=== PATIENT | male | born 1950 | race Caucasian/White ===

== ENCOUNTER 2017-07-28 15:21 | Inpatient (IN) | payer MEDICARE ==
[~2017-07-28] VITALS: Ht 190.5 cm; Wt 67.0 kg
[2017-07-28] VITALS (8 sets, daily range): BP systolic 79–122; BP diastolic 50–70; PULSE 82–100; RESP 15–18; TEMP 97.7; O2SAT 98–100
[2017-07-28] MEDS ORDERED: SODIUM CHLOR 0.9% 1000 ML INJ 1,000 ML IV SCH (17:14)
[2017-07-28] MEDS ORDERED: SODIUM CHLORIDE 0.9% FLUSH 5 ML FLUSH IV FLUSH PRN (17:15)
--- NOTE | 2017-07-28 17:34 | PD ---
HPI Chief Complaint: Psychiatric Symptoms Time Seen by Provider: 17:21 Travel History International Travel<30 days: No Contact w/Intl Traveler<30days: No Traveled to known affect area: No History of Present Illness HPI 67 YO M with PMH of muscular dystrophy presents to the ED via EMS for evaluation of sacral decubitus. The patient states that some family came to visit from out of town, saw the wound and thought he should be seen in the ED. On presentation any denies fever, chills, nausea, vomiting. He endorses anhedonia and states that he feels "as if I should get my affairs in order." He denies suicidality. He has family members in town that help him with his daily needs. He states that he has not seen a physician in approximately 15 years. PFSH Past Medical History Immune Disorder: Yes Musculoskeletal: Yes (MUSCLAR DISTROPHY ) Past Surgical History Surgical History: No Previous Surgery Social History Alcohol Use: No Tobacco Use: Yes Substance Use: No Allergies-Medications (Allergen,Severity, Reaction): Coded Allergies: Penicillins (Verified Allergy, Intermediate, 07/28/17) Reported Meds & Prescriptions Reported Meds & Active Scripts Active No Active Prescriptions or Reported Medications Review of Systems Except as stated in HPI: all other systems reviewed are Neg Physical Exam Narrative GENERAL: Thin, chronically ill-appearing, contracted white male in no acute distress. SKIN: Focused skin assessment warm/dry. Sacral decubitus measuring 7 cm wide x 5 cm long x 5 cm deep, foul-smelling, purulent discharge. HEAD: Normocephalic. EYES: No scleral icterus. No injection or drainage. NECK: Supple, trachea midline. No JVD or lymphadenopathy. CARDIOVASCULAR: Regular rate and rhythm without murmurs, gallops, or rubs. RESPIRATORY: Breath sounds clear and equal bilaterally. No accessory muscle use. GASTROINTESTINAL: Abdomen scaphoid, soft, non-tender, nondistended. MUSCULOSKELETAL: No cyanosis, or edema. Contractures. BACK: Nontender. No CVA tenderness. Data Data Last Documented VS Vital Signs Date Time Temp Pulse Resp B/P (MAP) Pulse Ox O2 Delivery O2 Flow Rate FiO2 07/28/17 20:35 86 18 122/70 (87) 99 07/28/17 19:00 Room Air 07/28/17 16:55 97.7 Orders Orders Electrocardiogram (07/28/17 17:14) Complete Blood Count With Diff (07/28/17 17:14) Comprehensive Metabolic Panel (07/28/17 17:14) Prothrombin Time / Inr (Pt) (07/28/17 17:14) Act Partial Throm Time (Ptt) (07/28/17 17:14) Urinalysis - C+S If Indicated (07/28/17 17:14) Chest, Single Ap (07/28/17 17:14) Blood Glucose (07/28/17 17:14) Ecg Monitoring (07/28/17 17:14) Iv Access Insert/Monitor (07/28/17 17:14) Oximetry (07/28/17 17:14) Sodium Chloride 0.9% Flush (Ns Flush) (07/28/17 17:15) Sodium Chlor 0.9% 1000 Ml Inj (Ns 1000 M (07/28/17 17:14) Psych Screen (07/28/17 17:34) Sodium Chlor 0.9% 1000 Ml Inj (Ns 1000 M (07/28/17 19:00) Wound Culture And Gram Stain (07/28/17 19:14) Blood Culture (07/28/17 19:16) Aztreonam Inj (Azactam Inj) (07/28/17 19:19) Metronidazole 500 Mg Inj (Flagyl 500 Mg (07/28/17 19:19) Vancomycin Inj (Vancomycin Inj) (07/28/17 19:19) Sodium Chlor 0.9% 1000 Ml Inj (Ns 1000 M (07/28/17 19:45) Lactic Acid Sepsis Protocol (07/28/17 19:49) Admit Order (Ed Use Only) (07/28/17 20:54) Labs Laboratory Tests Test 07/28/17 17:30 07/28/17 20:10 07/28/17 20:25 White Blood Count 13.6 TH/MM3 Red Blood Count 2.94 MIL/MM3 Hemoglobin 10.0 GM/DL Hematocrit 29.9 % Mean Corpuscular Volume 101.7 FL Mean Corpuscular Hemoglobin 34.0 PG Mean Corpuscular Hemoglobin Concent 33.4 % Red Cell Distribution Width 14.2 % Platelet Count 200 TH/MM3 Mean Platelet Volume 7.5 FL Neutrophils (%) (Auto) 93.2 % Lymphocytes (%) (Auto) 2.3 % Monocytes (%) (Auto) 4.4 % Eosinophils (%) (Auto) 0.0 % Basophils (%) (Auto) 0.1 % Neutrophils # (Auto) 12.7 TH/MM3 Lymphocytes # (Auto) 0.3 TH/MM3 Monocytes # (Auto) 0.6 TH/MM3 Eosinophils # (Auto) 0.0 TH/MM3 Basophils # (Auto) 0.0 TH/MM3 CBC Comment DIFF FINAL Differential Comment Prothrombin Time 11.5 SEC Prothromb Time International Ratio 1.0 RATIO Activated Partial Thromboplast Time 34.5 SEC Blood Urea Nitrogen 13 MG/DL Creatinine 0.29 MG/DL Random Glucose 78 MG/DL Total Protein 4.8 GM/DL Albumin 1.6 GM/DL Calcium Level 7.7 MG/DL Alkaline Phosphatase 68 U/L Aspartate Amino Transf (AST/SGOT) 41 U/L Alanine Aminotransferase (ALT/SGPT) 16 U/L Total Bilirubin 0.9 MG/DL Sodium Level 134 MEQ/L Potassium Level 3.8 MEQ/L Chloride Level 92 MEQ/L Carbon Dioxide Level 29.2 MEQ/L Anion Gap 13 MEQ/L Estimat Glomerular Filtration Rate 311 ML/MIN Lactic Acid Level 0.9 mmol/L MDM Medical Decision Making Medical Screen Exam Complete: Yes Emergency Medical Condition: Yes Differential Diagnosis Sacral decubitus versus cellulitis versus sepsis versus passive suicidal ideation versus metabolic derangement versus other Narrative Course 67 YO M with PMH of muscular dystrophy presents to the ED via EMS for evaluation of sacral decubitus. He denies fever, chills, nausea, vomiting. He endorses anhedonia and states that he feels "as if I should get my affairs in order." He denies suicidality. He states that he has not seen a physician in approximately 15 years. Heart rate 97, respiratory rate 15, BP 108/66, O2 saturation 98% on room air on presentation. Physical exam reveals a contracted , cachectic, chronically ill-appearing white male in no acute distress. He has a 7 x 5 x 5 cm purulent, foul-smelling sacral decubitus. Patient was administered 3 L normal saline. Pulse 86, BP 122/70 after fluid resuscitation. CBC: WBC 13.6 with left shift. Hemoglobin 10. INR 1.0. CBC: Sodium 134, chloride 92, calcium 7.7. Lactic acid: 0.9 EKG: rate 88, sinus rhythm. Normal axis, no acute ST changes. Reviewed buy Dr. Alcantara. CXR: COPD changes. Prominent aortic root suggesting aneurysmal dilatation, CT suggested. Blood cultures were obtained. The patient is allergic to PCN. He was administered IV Vanc, Aztreonam and Flagyl. The patient meets sepsis criteria. I spoke with Dr. Marte who agrees to accept the patient to the medicine service. Please see medicine notes for disposition. Sepsis Criteria SIRS Criteria (2 or more): Heart rate over 90, WBC > 40362, < 4000 or > 10% bands Sepsis Criteria (SIRS+source): Infect source susp/known Criteria Outcome: Meets SIRS criteria, Meets sepsis criteria Scripts No Active Prescriptions or Reported Meds Evelyn Early Jul 28, 2017 17:34
[2017-07-28 17:51] LABS: AUTOMATED NEUTROPHIL # 12.7 TH/MM3 (1.8-7.7); BASOPHIL % 0.1 % (0.0-2.0); HEMATOCRIT 29.9 % (39.0-51.0); HEMO FLAGS DIFF FINAL; LYMPH % 2.3 % (9.0-44.0); LYMPHOCYTE # 0.3 TH/MM3 (1.0-4.8); MEAN CELL VOLUME 101.7 FL (80.0-100.0); MEAN CORPUSCULAR HGB CONC 33.4 % (32.0-36.0); MONO % 4.4 % (0.0-8.0); NEUT % 93.2 % (16.0-70.0); PLATELET COUNT 200 TH/MM3 (150-450); RED BLOOD COUNT 2.94 MIL/MM3 (4.50-5.90); RED CELL DISTRIBUTION WIDTH 14.2 % (11.6-17.2); WHITE BLOOD COUNT 13.6 TH/MM3 (4.0-11.0)
[2017-07-28 17:55] LABS: APTT (PATIENT) 34.5 SEC (24.3-30.1); PROTHROMBIN TIME - PATIENT 11.5 SEC (9.8-11.6)
--- NOTE | 2017-07-28 18:04 | RADRPT ---
EXAM DATE/TIME: 07/28/2017 17:43 [facility] COMPARISON: No previous studies available for comparison. INDICATIONS : Shortness of Breath MEDICAL HISTORY : None. SURGICAL HISTORY : None. ENCOUNTER: Initial ACUITY: 1 day PAIN SCORE: 0/10 LOCATION: Bilateral chest FINDINGS: There are COPD changes. There is elevation of the right hemidiaphragm. There is prominence of the aor tic root suggesting aneurysmal dilation of the aortic root. The visualized bony structures are grossly intact. CONCLUSION: 1. COPD changes. 2. Prominence of the aortic root and ascending aorta suggesting aneurysmal dilation. CT imaging could be performed for more definitive assessment Jimmy Koch MD on July 28, 2017 at 18:02 Board Certified Radiologist. This report was verified electronically.
[2017-07-28 18:11] LABS: ALKALINE PHOSPHATASE 68 U/L (45-117); ALT (GPT) 16 U/L (12-78); TOTAL BILIRUBIN ADULT 0.9 MG/DL (0.2-1.0)
[2017-07-28 18:16] LABS: ANION GAP 13 MEQ/L (5-15); AST (GOT) 41 U/L (15-37); BICARBONATE 29.2 MEQ/L (21.0-32.0); BLOOD UREA NITROGEN 13 MG/DL (7-18); CHLORIDE 92 MEQ/L (98-107); GLOMERULAR FILTRATION RATE 311 ML/MIN (>89); SODIUM (NA) 134 MEQ/L (136-145)
[2017-07-28 18:17] LABS: POTASSIUM 3.8 MEQ/L (3.5-5.1)
[2017-07-28] MEDS ORDERED: SODIUM CHLOR 0.9% 1000 ML INJ 1,000 ML IV ONE ×2 (19:00→19:45)
[2017-07-28] MEDS ORDERED: metroNIDAZOLE 500 MG INJ 100 ML IV STA (19:19)
[2017-07-28] MEDS ORDERED: AZTREONAM INJ 2,000 MG in SODIUM CHLORIDE 0.9% INJ 100 ML IV STA (19:19)
[2017-07-28] MEDS ORDERED: VANCOMYCIN INJ 1,000 MG in SODIUM CHLOR 0.9% 250 ML INJ 250 ML IV STA (19:19)
--- NOTE | 2017-07-28 20:52 | EKG ---
Date Performed: 07/28/2017 Time Performed: 17:55:18 PTAGE: 67 years EKG: Sinus rhythm POSSIBLE RIGHT ATRIAL ENLARGEMENT possible Anteroseptal myocardial infarction NO PREVIOUS TRACING DOCTOR: Karan Carmona Interpretating Date/Time 07/28/2017 20:51:03
[2017-07-28] MEDS ORDERED: ONDANSETRON HCL 4 MG/2 ML VIAL IVP PRN (21:00)
[2017-07-28] MEDS ORDERED: ACETAMINOPHEN/HYDROcodone 325 MG/5 MG TAB PO PRN (21:00)
[2017-07-28] MEDS ORDERED: SENNOSIDES 8.6 MG TAB PO PRN (21:00)
[2017-07-28] MEDS ORDERED: MORPHINE SULFATE 4 MG/ML INJ IV PUSH PRN (21:00)
[2017-07-28] MEDS ORDERED: LACTULOSE SYRUP 20 GM/30 ML CUP PO PRN (21:00)
[2017-07-28] MEDS ORDERED: SODIUM CHLORIDE 0.9% FLUSH 10 ML FLUSH IV FLUSH PRN (21:00)
[2017-07-28] MEDS ORDERED: BISACODYL 10 MG SUPP RECTAL PRN (21:00)
[2017-07-28] MEDS ORDERED: ACETAMINOPHEN 325 MG TAB PO PRN (21:00)
[2017-07-28] MEDS ORDERED: MAGNESIUM HYDROXIDE SUSP 30 ML CUP PO PRN (21:00)
[2017-07-28] MEDS ORDERED: Vancomycin Consult Pharmacy 1 EA OTHER SCH (21:00)
[2017-07-28 21:03] LABS: BLOOD, URINE NEG (NEG); COMMENT (UR) CATH-CULT NOT IND; CULTURE IF INDICATED CATH CULTURE NOT IND; GLUCOSE,URINE NEG (NEG); KETONE, URINE 10 mg/dL (NEG); MUCUS URINE FEW /lpf (OCC); NITRITE,URINE NEG (NEG); SQUAMOUS EPITHELIAL CELL URINE 2 /hpf (0-5)
--- NOTE | 2017-07-28 21:04 | HHI.HP ---
[facility] Unknown Admission Diagnosis sepsis Diagnoses: (1) Sepsis Diagnosis: Principal (2) Decubitus ulcer Diagnosis: Principal (3) Hypotension Diagnosis: Principal (4) Muscular dystrophy Diagnosis: Principal (5) COPD (chronic obstructive pulmonary disease) Diagnosis: Principal (6) Tobacco abuse Diagnosis: Principal Travel History International Travel<30 Days: No Contact w/Intl Traveler <30 Da: No Traveled to Known Affected Are: No History of Present Illness This is a 67-year-old male with a PMH of Muscular Dystrophy and Tobacco Abuse who was brought to the ER by EMS for evaluation of sacral decubitus ulcer. Pt' s nephew visited from out of town, concerned that pt not being cared for and noted decubitus ulcer for which he called EMS. Pt denies fever, chills. On arrival, BP 97/61, HR 100, O2 sat 100% on RA, afebrile. WBC 13.6. Chemistry essentially unremarkable. Lactic Acid normal. Calcium 7.7. INR 1.0. UA negative. CXR with COPD, prominent aortic root and ascending aorta suggesting dilatation. S/p Blood/Wound Cultures in ER, Vanc/Azactam/Flagyl. Episode of hypotension in ER w/ BP 70's, resolved after IVF. Review of Systems Except as stated in HPI: all other systems reviewed are Neg ROS: 14 point review of systems otherwise negative. Past Family Social History Past Medical History PMH: Muscular Dystrophy and Tobacco Abuse Past Surgical History PAST SURGICAL HISTORY: None Allergies: Coded Allergies: Penicillins (Verified Allergy, Intermediate, 07/28/17) Family History PAST FAMILY HISTORY: Reviewed. No h/o DM or CAD Social History PAST SOCIAL HISTORY: Negative for alcohol or drugs. Positive for tobacco. Physical Exam Vital Signs Vital Signs Date Time Temp Pulse Resp B/P (MAP) Pulse Ox O2 Delivery O2 Flow Rate FiO2 07/28/17 20:35 86 18 122/70 (87) 99 07/28/17 19:00 89 15 97/68 (78) 98 Room Air 07/28/17 18:30 85 15 79/50 (60) 98 Room Air 07/28/17 18:00 86 15 90/60 (70) 98 Room Air 07/28/17 17:30 95 15 120/66 (84) 98 Room Air 07/28/17 17:02 97 15 108/66 (80) 98 Room Air 07/28/17 16:55 97.7 100 15 97/61 (73) 100 Physical Exam PE: GENERAL: Middle-aged white male, chronically ill-appearing in no acute distress. HEENT: PERRLA, EOMI. No scleral icterus or conjunctival pallor. No lid lag or facial droop. CARDIOVASCULAR: Regular rate and rhythm. No obvious murmurs to auscultation. No chest tenderness to palpation. RESPIRATORY: No obvious rhonchi or wheezing. Clear to auscultation. Breath sounds equal bilaterally. GASTROINTESTINAL: Abdomen soft, non-tender, nondistended. BS normal. MUSCULOSKELETAL: Extremities without clubbing, cyanosis, or edema. No obvious deformities. Contracted, at baseline. Sacral decubitus ulcer, +purulent drainage. NEUROLOGICAL: Awake, alert and oriented x4. No focal neurologic deficits. Moving both upper and lower extremities spontaneously. Laboratory Laboratory Tests Test 07/28/17 17:30 07/28/17 20:10 07/28/17 20:25 White Blood Count 13.6 Red Blood Count 2.94 Hemoglobin 10.0 Hematocrit 29.9 Mean Corpuscular Volume 101.7 Mean Corpuscular Hemoglobin 34.0 Mean Corpuscular Hemoglobin Concent 33.4 Red Cell Distribution Width 14.2 Platelet Count 200 Mean Platelet Volume 7.5 Neutrophils (%) (Auto) 93.2 Lymphocytes (%) (Auto) 2.3 Monocytes (%) (Auto) 4.4 Eosinophils (%) (Auto) 0.0 Basophils (%) (Auto) 0.1 Neutrophils # (Auto) 12.7 Lymphocytes # (Auto) 0.3 Monocytes # (Auto) 0.6 Eosinophils # (Auto) 0.0 Basophils # (Auto) 0.0 CBC Comment DIFF FINAL Differential Comment Prothrombin Time 11.5 Prothromb Time International Ratio 1.0 Activated Partial Thromboplast Time 34.5 Blood Urea Nitrogen 13 Creatinine 0.29 Random Glucose 78 Total Protein 4.8 Albumin 1.6 Calcium Level 7.7 Alkaline Phosphatase 68 Aspartate Amino Transf (AST/SGOT) 41 Alanine Aminotransferase (ALT/SGPT) 16 Total Bilirubin 0.9 Sodium Level 134 Potassium Level 3.8 Chloride Level 92 Carbon Dioxide Level 29.2 Anion Gap 13 Estimat Glomerular Filtration Rate 311 Lactic Acid Level 0.9 Date/Time Source Procedure Growth Status 07/28/17 20:10 Blood Line Aerobic Blood Culture Pending Received 07/28/17 20:10 Blood Line Anaerobic Blood Culture Pending Received Result Diagram: 07/28/17 1730 07/28/17 1730 Caprini VTE Risk Assessment Caprini VTE Risk Assessment: Mod/High Risk (score >= 2) Caprini Risk Assessment Model Point Value = 1 Point Value = 2 Point Value = 3 Point Value = 5 Age 41-60 Minor surgery BMI > 25 kg/m2 Swollen legs Varicose veins or History of unexplained or recurrent spontaneous Oral contraceptives or hormone replacement Sepsis (< 1 month) Serious lung disease, including pneumonia (< 1 month) Abnormal pulmonary function Acute myocardial infarction Congestive heart failure (< 1 month) History of inflammatory bowel disease Medical patient at bed rest Age 61-74 Arthroscopic surgery Major open surgery (> 45 min) Laparoscopic surgery (> 45 min) Malignancy Confined to bed (> 72 hours) Immobilizing plaster cast Central venous access Age >= 75 History of VTE Family history of VTE Factor V Leiden Prothrombin [id number] Lupus anticoagulant Anticardiolipin antibodies Elevated serum homocysteine Heparin-induced thrombocytopenia Other congenital or acquired thrombophilia Stroke (< 1 month) Elective arthroplasty Hip, pelvis, or leg fracture Acute spinal cord injury (< 1 month) Prophylaxis Regimen Total Risk Factor Score Risk Level Prophylaxis Regimen 0-1 Low Early ambulation 2 Moderate Order ONE of the following: *Sequential Compression Device (SCD) *Heparin 5000 units SQ BID 3-4 Higher Order ONE of the following medications: *Heparin 5000 units SQ TID *Enoxaparin/Lovenox 40 mg SQ daily (WT < 150 kg, CrCl > 30 mL/min) *Enoxaparin/Lovenox 30 mg SQ daily (WT < 150 kg, CrCl > 10-29 mL/min) *Enoxaparin/Lovenox 30 mg SQ BID (WT < 150 kg, CrCl > 30 mL/min) AND/OR *Sequential Compression Device (SCD) 5 or more Highest Order ONE of the following medications: *Heparin 5000 units SQ TID (Preferred with Epidurals) *Enoxaparin/Lovenox 40 mg SQ daily (WT < 150 kg, CrCl > 30 mL/min) *Enoxaparin/Lovenox 30 mg SQ daily (WT < 150 kg, CrCl > 10-29 mL/min) *Enoxaparin/Lovenox 30 mg SQ BID (WT < 150 kg, CrCl > 30 mL/min) AND *Sequential Compression Device (SCD) Assessment and Plan Problem List: (1) Sepsis ICD Code: A41.9 - Sepsis, unspecified organism (2) Decubitus ulcer ICD Code: L89.90 - Pressure ulcer of unspecified site, unspecified stage (3) Hypotension ICD Code: I95.9 - Hypotension, unspecified (4) Muscular dystrophy ICD Code: G71.0 - Muscular dystrophy (5) COPD (chronic obstructive pulmonary disease) ICD Code: J44.9 - Chronic obstructive pulmonary disease, unspecified (6) Tobacco abuse ICD Code: Z72.0 - Tobacco use Assessment and Plan A/P: 1. Sepsis: HR 100, Hypotension, WBC 13, Source-Sacral Decubitus Ulcer. S/p Blood/Wound Cultures, will follow. S/p Vanc/Azactam/Flagyl, will continue w/ IV Abx. 2. Decubitus Ulcer: Sacral. Present on admission. +purulent drainage, s/p Wound Culture, will follow. Consult Wound Management. Continue w/ IV Abx as above. 3. Hypotension: BP 90's on arrival, episode of hypotension w/ BP 70's while in ER, s/p IVF w/ improvement, BP currently 122/70, HR 86. Will monitor. 4. Muscular Dystrophy: Stable. Contractures at baseline. Limited mobility. Case Management for assistance w/ possible need for placement as pt unable to care for self. 5. COPD: Chronic Respiratory Failure. Stable. DuoNeb prn. 6. Tobacco Abuse: Pt counselled. Ativan/NicoDerm prn if needed. 7. DVT Prophylaxis: Heparin sq 8. Social work for d/c planning as needed. 9. Case discussed w/ ER physician at length. Physician Certification 2 Midnight Certification Type: Admission for Inpatient Services Order for Inpatient Services The services are ordered in accordance with Medicare regulations or non- Medicare payer requirements, as applicable. In the case of services not specified as inpatient-only, they are appropriately provided as inpatient services in accordance with the 2-midnight benchmark. Estimated LOS (days): 2 days is the estimated time the patient will need to remain in the hospital, assuming treatment plan goals are met and no additional complications. Post-Hospital Plan: Not yet determined Maribel Marte MD Jul 28, 2017 21:04
[2017-07-28 21:09] LABS: URINE COLOR DARK-BROWN (YELLW/STRAW)
[2017-07-28] MEDS: DOCUSATE SODIUM 50 MG/SENNA 8.6 MG TAB PO SCH (21:55)
[2017-07-28] MEDS: SODIUM CHLORIDE 0.9% FLUSH 10 ML FLUSH IV FLUSH SCH (21:55)
[2017-07-28] MEDS: SODIUM CHLOR 0.9% 1000 ML INJ 1,000 ML IV SCH (21:55)
[2017-07-29] VITALS (8 sets, daily range): BP systolic 84–101; BP diastolic 50–65; PULSE 84–90; RESP 18–20; TEMP 97.3–98.1; O2SAT 93–98
[2017-07-29] MEDS: SODIUM CHLOR 0.9% 1000 ML INJ 1,000 ML IV SCH ×2 (06:00→08:21)
[2017-07-29] MEDS: SODIUM CHLORIDE 0.9% FLUSH 10 ML FLUSH IV FLUSH SCH ×2 (07:46→20:25)
[2017-07-29] MEDS: HEPARIN SODIUM - SQ 10,000 UNITS/ML VIAL SQ SCH ×2 (08:20→20:24)
[2017-07-29] MEDS: VANCOMYCIN 1,000 MG/NS 250 ML IV SCH ×4 (08:20→20:24)
[2017-07-29] MEDS: DOCUSATE SODIUM 50 MG/SENNA 8.6 MG TAB PO SCH ×2 (08:20→20:24)
[2017-07-29] MEDS: AZTREONAM INJ 2,000 MG in SODIUM CHLORIDE 0.9% INJ 100 ML IV SCH ×2 (09:44→21:39)
[2017-07-29 10:31] LABS: AUTOMATED NEUTROPHIL # 8.4 TH/MM3 (1.8-7.7); BASOPHIL % 0.4 % (0.0-2.0); HEMATOCRIT 27.5 % (39.0-51.0); LYMPH % 4.2 % (9.0-44.0); LYMPHOCYTE # 0.4 TH/MM3 (1.0-4.8); MEAN CELL VOLUME 101.9 FL (80.0-100.0); MEAN CORPUSCULAR HGB CONC 33.3 % (32.0-36.0); MONO % 3.7 % (0.0-8.0); NEUT % 91.7 % (16.0-70.0); PLATELET COUNT 156 TH/MM3 (150-450); RED CELL DISTRIBUTION WIDTH 14.3 % (11.6-17.2); WHITE BLOOD COUNT 9.2 TH/MM3 (4.0-11.0)
[2017-07-29 10:36] LABS: HEMO FLAGS AUTO DIFF
[2017-07-29 11:06] LABS: ANION GAP 12 MEQ/L (5-15); AST (GOT) 25 U/L (15-37); BICARBONATE 25.3 MEQ/L (21.0-32.0); BLOOD UREA NITROGEN 10 MG/DL (7-18); CHLORIDE 100 MEQ/L (98-107); GLOMERULAR FILTRATION RATE 666 ML/MIN (>89); SODIUM (NA) 137 MEQ/L (136-145)
[2017-07-29 11:08] LABS: POTASSIUM 2.9 MEQ/L (3.5-5.1)
[2017-07-29 11:10] LABS: ALKALINE PHOSPHATASE 55 U/L (45-117); ALT (GPT) 12 U/L (12-78); TOTAL BILIRUBIN ADULT 0.5 MG/DL (0.2-1.0)
[2017-07-29 11:16] LABS: BANDS 23 % (0-6); METAMYELOCYTES 3 % (0-1); POLYS (SEG NEUTROPHILS) 72 % (16-70); WBC DIFF SAMPLE 100
[2017-07-29 11:22] LABS: SCAN/DIFF FINAL DIFF MANUAL; TOXIC GRANULATION 2+ (NORMAL)
--- NOTE | 2017-07-29 11:26 | HHI.PR ---
Subjective Remarks Extensive discussion with the patient. He reports that he has muscular dystrophy and his quality of life is poor. He states he knows he is dying. He states that his goal is to go back home to his sister so he can make his final arrangements. He does have discomfort with movements. Not eating much. He does not want any invasive measures. Objective Vitals Vital Signs Date Time Temp Pulse Resp B/P (MAP) Pulse Ox O2 Delivery O2 Flow Rate FiO2 07/29/17 08:00 97.3 85 20 97/56 (70) 95 07/29/17 04:00 97.4 84 18 101/56 (71) 97 07/29/17 02:07 87 07/29/17 00:00 97.6 85 20 99/65 (76) 98 07/28/17 23:08 07/28/17 22:37 82 16 107/68 (81) 98 07/28/17 20:35 86 18 122/70 (87) 99 07/28/17 19:00 89 15 97/68 (78) 98 Room Air 07/28/17 18:30 85 15 79/50 (60) 98 Room Air 07/28/17 18:00 86 15 90/60 (70) 98 Room Air 07/28/17 17:30 95 15 120/66 (84) 98 Room Air 07/28/17 17:02 97 15 108/66 (80) 98 Room Air 07/28/17 16:55 97.7 100 15 97/61 (73) 100 I/O 07/28/17 07/28/17 07/28/17 07/29/17 07/29/17 07/29/17 07:00 15:00 23:00 07:00 15:00 23:00 Intake Total 3200 ml 0 ml Output Total 0 ml Balance 3200 ml 0 ml Intake Oral 0 ml IV Total 3200 ml Output Urine Total 0 ml # Bowel Movements 0 Result Diagram: 07/29/17 1016 07/29/17 1016 Imaging Last Impressions Chest X-Ray 07/28/17 7092 Signed Impressions: Service Date/Time: Friday, July 28, 2017 17:43 - CONCLUSION: 1. COPD changes. 2. Prominence of the aortic root and ascending aorta suggesting aneurysmal dilation. CT imaging could be performed for more definitive assessment Jimmy Koch MD Objective Remarks GENERAL: Cachectic-looking patient. SKIN: Large sacral debub ulcer with purulence and very foul smell. CARDIOVASCULAR: Normal rate and regular rhythm without murmurs, gallops, or rubs. RESPIRATORY: Good respiratory efforts. Breath sounds equal and clear to auscultation bilaterally. GASTROINTESTINAL: Abdomen soft, non-tender, non-distended. Normal active bowel sounds MUSCULOSKELETAL: Extremities without cyanosis, or edema. NEURO: Alert & Oriented x4 to person, place, time, situation. Patient cannot move his left upper and lower extremities. PSYCH: Appropriate mood and affect. A/P Problem List: (1) Sepsis ICD Code: A41.9 - Sepsis, unspecified organism (2) Decubitus ulcer ICD Code: L89.90 - Pressure ulcer of unspecified site, unspecified stage (3) Hypotension ICD Code: I95.9 - Hypotension, unspecified (4) Muscular dystrophy ICD Code: G71.0 - Muscular dystrophy (5) COPD (chronic obstructive pulmonary disease) ICD Code: J44.9 - Chronic obstructive pulmonary disease, unspecified (6) Tobacco abuse ICD Code: Z72.0 - Tobacco use Assessment and Plan 67-year-old male brought into the hospital by EMS after a visiting family member expressed concern about his decline. The patient himself reports that he knows he has been declining and is dying. He has been dealing with muscular dystrophy from a young age. He knew about the decubitus wounds. He states he does not want any invasive measures such as debridement and is requesting hospice consultation. He states that his goal is to go home to take care of his affairs and at home. Hospice consulted. Ongoing treatment include: Sepsis: On admission, HR 100, Hypotension, WBC 13, Source-Sacral Decubitus Ulcer. S/p Blood/Wound Cultures, will follow. S/p Vanc/Azactam/Flagyl, will continue w/ IV Abx. Decubitus Ulcer: Sacral. Present on admission. +purulent drainage, s/p Wound Culture, will follow. Consult Wound Management. Continue w/ IV Abx as above. Hypotension: BP remain borderline. Will give another bolus of IV fluid and increase fluid to 125 cc/h Muscular Dystrophy: Contractures at baseline. Limited mobility. Case Management for assistance w/ possible need for placement as pt unable to care for self. COPD: Chronic Respiratory Failure. Stable. DuoNeb prn. Supplemental oxygen as needed DVT Prophylaxis: Heparin sq Marlene Hernandez MD Jul 29, 2017 11:26
[2017-07-29] MEDS ORDERED: POTASSIUM CHLOR 20 MEQ PREMIX 100 ML IV ONE (12:00)
[2017-07-29] MEDS ORDERED: POTASSIUM CHLORIDE 20 MEQ CONTROLLED RELEASE TAB PO ONE (12:00)
[2017-07-29] MEDS ORDERED: SODIUM CHLORID 0.9% 500 ML INJ 500 ML IV ONE ×2 (13:00→15:15)
[2017-07-30] VITALS: BP 95/53; PULSE 86; RESP 17; TEMP 98.2; O2SAT 94
[2017-07-30] MEDS: SODIUM CHLOR 0.9% 1000 ML INJ 1,000 ML IV SCH ×2 (01:14→08:54)
[2017-07-30 04:00] VITALS: BP 91/49; PULSE 82; RESP 16; TEMP 98; O2SAT 93
[2017-07-30] MEDS ORDERED: PHARMACY ORDERED LAB ONE (07:45)
[2017-07-30 08:00] VITALS: BP 92/60; PULSE 91; RESP 18; TEMP 97.8; O2SAT 94
[2017-07-30] MEDS: HEPARIN SODIUM - SQ 10,000 UNITS/ML VIAL SQ SCH (08:53)
[2017-07-30] MEDS: DOCUSATE SODIUM 50 MG/SENNA 8.6 MG TAB PO SCH (08:54)
[2017-07-30] MEDS: SODIUM CHLORIDE 0.9% FLUSH 10 ML FLUSH IV FLUSH SCH (08:54)
[2017-07-30] MEDS: VANCOMYCIN 1,000 MG/NS 250 ML IV SCH ×2 (08:54)
[2017-07-30] MEDS: AZTREONAM INJ 2,000 MG in SODIUM CHLORIDE 0.9% INJ 100 ML IV SCH (08:54)
[2017-07-30 09:05] LABS: HEMATOCRIT 28.4 % (39.0-51.0); MEAN CELL VOLUME 102.8 FL (80.0-100.0); PLATELET COUNT 151 TH/MM3 (150-450); RED BLOOD COUNT 2.76 MIL/MM3 (4.50-5.90); RED CELL DISTRIBUTION WIDTH 14.2 % (11.6-17.2); REVIEW FLAG FINAL; WHITE BLOOD COUNT 8.9 TH/MM3 (4.0-11.0)
[2017-07-30 09:42] LABS: ANION GAP 10 MEQ/L (5-15); BLOOD UREA NITROGEN 6 MG/DL (7-18); CHLORIDE 106 MEQ/L (98-107); GLOMERULAR FILTRATION RATE 666 ML/MIN (>89); POTASSIUM 3.1 MEQ/L (3.5-5.1); SODIUM (NA) 141 MEQ/L (136-145)
[2017-07-30 10:00] LABS: CALCIUM-PROTEIN CORRECTED 9.3 MG/DL (8.5-10.1)
[2017-07-30 12:00] VITALS: BP 90/63; PULSE 97; RESP 18; TEMP 97.2; O2SAT 93
[2017-07-30] MEDS ORDERED: D5-1/2 NS + KCL 20 MEQ INJ 1,000 ML IV SCH (13:00)
--- NOTE | 2017-07-30 13:02 | HHI.PR ---
Subjective Remarks Patient anxious to go home. He wants to go home with Hospice. His nephew and sister in the room, all of them anxious to get him home. He states he just wants to at home and not in the Hospital. Objective Vitals Vital Signs Date Time Temp Pulse Resp B/P (MAP) Pulse Ox O2 Delivery O2 Flow Rate FiO2 07/30/17 11:58 07/30/17 04:00 98.0 82 16 91/49 (63) 93 07/30/17 00:00 98.2 86 17 95/53 (67) 94 07/29/17 20:00 86 07/29/17 20:00 98.1 88 19 85/51 (62) 93 07/29/17 16:59 86/51 (63) 07/29/17 16:58 84/53 (63) I/O 07/29/17 07/29/17 07/29/17 07/30/17 07/30/17 07/30/17 07:00 15:00 23:00 07:00 15:00 23:00 Intake Total 0 ml 120 ml 240 ml 0 ml Output Total 0 ml Balance 0 ml 120 ml 240 ml 0 ml Intake Oral 0 ml 120 ml 240 ml IV Total 0 ml Output Urine Total 0 ml # Voids 0 2 # Bowel Movements 0 0 0 Result Diagram: 07/30/1781107/30/17 08 Objective Remarks GENERAL: Cachectic-looking patient. SKIN: Large sacral debub ulcer with purulence and very foul smell. CARDIOVASCULAR: Normal rate and regular rhythm without murmurs, gallops, or rubs. RESPIRATORY: Good respiratory efforts. Breath sounds equal and clear to auscultation bilaterally. GASTROINTESTINAL: Abdomen soft, non-tender, non-distended. Normal active bowel sounds MUSCULOSKELETAL: Extremities without cyanosis, or edema. NEURO: Alert & Oriented x4 to person, place, time, situation. Patient cannot move his left upper and truman lower extremities. PSYCH: Anxious A/P Problem List: (1) Sepsis ICD Code: A41.9 - Sepsis, unspecified organism (2) Decubitus ulcer ICD Code: L89.90 - Pressure ulcer of unspecified site, unspecified stage (3) Hypotension ICD Code: I95.9 - Hypotension, unspecified (4) Muscular dystrophy ICD Code: G71.0 - Muscular dystrophy (5) COPD (chronic obstructive pulmonary disease) ICD Code: J44.9 - Chronic obstructive pulmonary disease, unspecified (6) Tobacco abuse ICD Code: Z72.0 - Tobacco use Assessment and Plan 67-year-old male with muscular dystrophy brought into the hospital by EMS after a visiting family member expressed concern about his decline. Apparently he was elliott acted by the police based on documentation in the chart. The patient himself reports that he knows he has been declining and is dying. He has been dealing with muscular dystrophy from a young age. He knew about the decubitus wounds. He states he does not want any invasive measures such as debridement and is requesting hospice. He states that his goal is to go home to take care of his affairs and at home. Hospice consulted. DW with his family at bedside today. They all want to take him home with Hospice. Ongoing treatment include: Sepsis: On admission, HR 100, Hypotension, WBC 13, Source-Sacral Decubitus Ulcer. S/p Blood/Wound Cultures, will follow. S/p Vanc/Azactam/Flagyl, will continue w/ IV Abx. Decubitus Ulcer: Sacral. Present on admission. +purulent drainage, s/p Wound Culture, will follow. Consult Wound Management. Continue w/ IV Abx as above. Hypotension: BP remain borderline. IV fluid at 125 cc/h Muscular Dystrophy: Contractures at baseline. Very limited mobility. COPD: Chronic Respiratory Failure. Stable. DuoNeb prn. Supplemental oxygen as needed DVT Prophylaxis: Heparin sq Marlene Hernandez MD Jul 30, 2017 13:02
--- NOTE | 2017-07-30 14:40 | PD.PSY.CON ---
Provisional Diagnosis Admission Date Jul 28, 2017 at 20:56 [place]. Adjustment disorder with depressed mood History of Present Illness Service Psychiatry Consult Requested By Reason for Consult Janis sepulveda Primary Care Physician Unknown HPI The patient is a 67-year-old man, domiciled alone, single, unemployed , without any previous psychiatric history, no previous suicidal attempts, no previous psychiatric hospitalizations, with medical history of muscular dystrophy brought into the hospital by EMS after a visiting family member expressed concern about his decline. Apparently he was bruce acted by the police based on documentation in the chart. The patient himself reports that he knows he has been declining and is dying. He has been dealing with muscular dystrophy from a young age. He knew about the decubitus wounds. He states he does not want any invasive measures such as debridement and is requesting hospice. He states that his goal is to go home to take care of his affairs and at home. Hospice consulted. DW with his family at bedside today. They all want to take him home with Hospice. On the psychiatric evaluation patient denies depressive symptoms, he denies anhedonia, he denies hopelessness or helplessness, he denies suicidal and homicidal ideation. Patient says that he just want to be at home and with dignity "when god calls me". Patient is fully oriented 3, there is no gross cognitive impairment, patient is able to express the choice to go back home, he doesn't want invasive procedures, patient has a very good understanding of medical conditions and appreciation of this medical conditions. He denies the use of alcohol or illicit drugs. Review of Systems Constitutional: DENIES: Diaphoretic episodes, Fatigue, Fever, Weight gain, Weight loss, Chills, Dizziness, Change in appetite, Night Sweats Endocrine: DENIES: Heat/cold intolerance, Polydipsia, Polyuria, Polyphagia Eyes: DENIES: Blurred vision, Diplopia, Eye inflammation, Eye pain, Vision loss , Photosensitivity, Double Vision Ears, nose, mouth, throat: DENIES: Tinnitus, Hearing loss, Vertigo, Nasal discharge, Oral lesions, Throat pain, Hoarseness, Ear Pain, Running Nose, Epistaxis, Sinus Pain, Toothache, Odynophagia Respiratory: DENIES: Apneas, Cough, Snoring, Wheezing, Hemoptysis, Sputum production, Shortness of breath Cardiovascular: DENIES: Chest pain, Palpitations, Syncope, Dyspnea on Exertion , PND, Lower Extremity Edema, Orthopnea, Claudication Gastrointestinal: DENIES: Abdominal pain, Black stools, Bloody stools, Constipation, Diarrhea, Nausea, Vomiting, Difficulty Swallowing, Anorexia Genitourinary: DENIES: Sexual dysfunction, Urinary frequency, Urinary incontinence, Urgency, Hematuria, Dysuria, Nocturia, Penile Discharge, Testicular Pain, Testicular Swelling Integumentary: DENIES: Abnormal pigmentation, Nail changes, Pruritus, Rash Immunologic/allergic: DENIES: Eczema, Urticaria Neurologic: DENIES: Abnormal gait, Headache, Localized weakness, Paresthesias, Seizures, Speech Problems, Tremor, Poor Balance Psychiatric: DENIES: Anxiety, Confusion, Mood changes, Depression, Hallucinations, Agitation, Suicidal Ideation, Homicidal Ideation, Delusions Past Family Social History Coded Allergies: Penicillins (Verified Allergy, Intermediate, 07/28/17) No Active Prescriptions or Reported Meds Current Medications Medications (Trade) Dose Ordered Sig/Mari Route Start Time Stop Time Status Last Admin Pharmacy Profile Note 0 ml @ 0 mls/hr UNSCH OTHER 07/28/17 21:00 Aztreonam 2000 mg/ Sodium Chloride 100 ml @ 200 mls/hr Q12H IV 07/29/17 09:00 07/30/17 08:54 (NS Flush) 2 ml UNSCH PRN IV FLUSH 07/28/17 21:00 (NS Flush) 2 ml BID IV FLUSH 07/28/17 21:00 07/30/17 08:54 (Zofran Inj) 4 mg Q6H PRN IVP 07/28/17 21:00 (Tylenol) 650 mg Q6H PRN PO 07/28/17 21:00 ([place] 5-325 Mg) 1 tab Q4H PRN PO 07/28/17 21:00 (Morphine Inj) 2 mg Q3H PRN IV PUSH 07/28/17 21:00 (Carlota-Colace) 1 tab BID PO 07/28/17 21:00 07/29/17 20:24 (Milk Of Magnesia Liq) 30 ml Q12H PRN PO 07/28/17 21:00 (Senokot) 17.2 mg Q12H PRN PO 07/28/17 21:00 (Dulcolax Supp) 10 mg DAILY PRN RECTAL 07/28/17 21:00 (Lactulose Liq) 30 ml DAILY PRN PO 07/28/17 21:00 Vancomycin HCl 1000 mg/Sodium Chloride 250 ml @ 250 mls/hr Q12H IV 07/29/17 08:00 07/30/17 08:54 (Heparin Inj) 5,000 units Q12HR SQ 07/29/17 09:00 07/30/17 08:53 Potassium Chloride/Dextrose/ Sod Cl 1,000 ml @ 125 mls/hr Q8H IV 07/30/17 13:00 07/30/17 13:00 Family History She denies family psychiatric history Physical Exam Vital Signs Vital Signs Date Time Temp Pulse Resp B/P (MAP) Pulse Ox O2 Delivery O2 Flow Rate FiO2 07/30/17 14:33 07/30/17 04:00 98.0 82 16 93 07/28/17 19:00 Room Air I/O 07/30/17 07/30/17 07/31/17 08:00 16:00 00:00 Intake Total 240 ml Balance 240 ml Lab Results Test 07/30/17 08:12 White Blood Count 8.9 TH/MM3 Red Blood Count 2.76 MIL/MM3 Hemoglobin 9.4 GM/DL Hematocrit 28.4 % Mean Corpuscular Volume 102.8 FL Mean Corpuscular Hemoglobin 34.0 PG Mean Corpuscular Hemoglobin Concent 33.0 % Red Cell Distribution Width 14.2 % Platelet Count 151 TH/MM3 Mean Platelet Volume 7.0 FL Blood Urea Nitrogen 6 MG/DL Creatinine LESS THAN 0.15 MG/DL Random Glucose 60 MG/DL Total Protein 4.0 GM/DL Calcium Level 7.4 MG/DL Sodium Level 141 MEQ/L Potassium Level 3.1 MEQ/L Chloride Level 106 MEQ/L Carbon Dioxide Level 25.0 MEQ/L Anion Gap 10 MEQ/L Estimat Glomerular Filtration Rate 666 ML/MIN Protein Corrected Calcium 9.3 MG/DL Vancomycin Level Trough 15.4 MCG/ML Date/Time Source Procedure Growth Status 07/28/17 20:10 Blood Line Aerobic Blood Culture - Preliminary NO GROWTH IN 2 DAYS Resulted 07/28/17 20:10 Anaerobic Blood Culture - Preliminary Strep Anginosus/Milleri Resulted 07/28/17 22:20 Wound Buttock Gram Stain - Final Resulted 07/28/17 22:20 Wound Culture - Preliminary Staphylococcus Aureus Resulted Mental Status Examination Appearance man, very palid, bedbound,, cooperative Speech: Unremarkable Orientation: x3 Memory: Unremarkable Thought Process: Logical Thought Content: Unremarkable Hallucination Type: None Suicidal Ideation: No Previous Suicide Attempts: No Homicidal Ideation: No Previous Homicide Attempts: No Judgment: WNL Affect: Good Mood: Appropriate Motor Activity: Normal gait Assessment & Plan Problem List: (1) Adjustment disorder with depressed mood ICD Codes: F43.21 - Adjustment disorder with depressed mood Assessment & Plan: On psychiatric evaluation today the patient does not present any symptomatology of depression, anxiety, psychosis or celia. The patient denies suicidal and homicidal ideation, he denies visual and auditory hallucinations. Patient is logical, coherent and relevant. The patient is oriented 3, no attention deficit, fluctuation of consciousness, no gross cognitive impairment present. Patient is able to express a good understanding and appreciation of medical situation. Patient is also able to elaborate about the consequences of not following medical recommendations. Patient expressed the choice of going back home and not having any invasive procedure. He says that he is open to have hospice at home. Patient does not meet criteria for psychiatric admission at this moment. Bruce act will be lifted. Brief supportive psychotherapy, hope, motivation provided. No psychotropics recommended. Patient has decision-making capacity to leave AMA and refuse invasive treatment. Assessment & Plan Estimated LOS: Eduardo Kennedy MD Jul 30, 2017 14:40
[2017-07-30 16:00] VITALS: BP 93/51; PULSE 90; RESP 18; TEMP 97; O2SAT 94
== END 2017-07-30 17:32 | disposition home or self-care (01) | DRG 872 ==
LOC: NEPE 15:21 → NEDA 20:56 → N04B 22:50
PROVIDERS: ADMIT Family Medicine; ATTEND Family Medicine
DX: A41.9 Sepsis, unspecified organism (principal); L89.159 Pressure ulcer of sacral region, unspecified stage; R64 Cachexia; G71.0 Muscular dystrophy; I95.9 Hypotension, unspecified; L89.319 Pressure ulcer of right buttock, unspecified stage; J96.10 Chronic respiratory failure, unspecified whether with hypoxia or hypercapnia; J44.9 Chronic obstructive pulmonary disease, unspecified; Z88.0 Allergy status to penicillin; Z72.0 Tobacco use; F43.21 Adjustment disorder with depressed mood
CPT/HCPCS: 71010; 80048; 80053; 80202; 81001; 83605; 84155; 85007; 85025; 85027; 85610; 85730; 86403; 87040; 87070; 87147; 87186; 87205; 93005; 96361; 96365; J1644; J3370; J3480; J7030; J7040; J7050